=== PATIENT | male | born 1935 | race Caucasian/White ===

== ENCOUNTER → 2023-09-17 | Outpatient (REF) | payer OTHER | LOC: M SFHCDERM 12:24 | PROVIDERS: ATTEND Nurse Practitioner Family | DX: L72.0 Epidermal cyst (principal); L90.5 Scar conditions and fibrosis of skin ==

== ENCOUNTER → 2024-03-14 | Outpatient (CLI) | payer MEDICARE | LOC: M RAD 10:31 | PROVIDERS: ATTEND Student in an Organized Health Care Education/Training Program | DX: I62.00 Nontraumatic subdural hemorrhage, unspecified (principal) ==

== ENCOUNTER → 2025-02-28 | Outpatient (CLI) | payer MEDICARE | LOC: M PLAIMG 10:59 | PROVIDERS: ATTEND Internal Medicine Cardiovascular Disease | DX: I77.819 Aortic ectasia, unspecified site (principal) ==